=== PATIENT | female | born 1960 | race Caucasian/White ===

== ENCOUNTER 2019-08-10 13:38 | Emergency (ER) | payer OTHER, SELFPAY ==
--- NOTE | ~2019-08-10 | XR_ITS ---
EXAMINATION: XR elbow LT min 3V DATE: 08/10/2019 14:23 INDICATION: Left elbow pain, initial encounter TECHNIQUE: Anteroposterior, two oblique and lateral views of the left elbow were obtained. COMPARISON: None. FINDINGS: There is a nondisplaced transverse fracture of the neck of the radius. There is questionabl e extension to the articular surface of the radial head. A joint effusion is present. There is art specialist ior soft tissue swelling of the ankle. No additional acute osseous findings are identified. IMPRESSION: 1. Transverse neck fracture of the proximal radius with questionable extension to the articular surfa ce. 2. Joint effusion. Reviewed, dictated and finalized at location A. WELDER IMPRESSION: 1. Transverse neck fracture of the proximal radius with questionable extension to the articular surface. 2. Joint effusion.
[2019-08-10 14:05] VITALS: BP 111/76; PULSE 84; RESP 18; TEMP 37.1; O2SAT 97
--- NOTE | 2019-08-10 15:00 | ED.UPPEXIN ---
HPI - Extremity Injury (Upper) General Chief Complaint: Extremity Injury, Upper Stated Complaint: L/arm pain Time Seen by Provider: 08/10/19 14:45 Source: patient and family Mode of arrival: ambulatory Limitations: no limitations History of Present Illness HPI narrative: Courtney Blake is a 58 yofemale with a PMH of arthritis, autoimmune + markers, who comes to express care after a fall on a slick floor, and hitting left elbow. Unable to move left arm more than a little over 90 degrees, sensation, and skin warm Related Data Home Medications Medication Instructions Recorded Confirmed meloxicam 15 mg PO DAILY 08/10/19 08/10/19 tramadol 50 mg PO DAILY 08/10/19 08/10/19 Allergies Allergy/AdvReac Type Severity Reaction Status Date / Time No Known Allergies Allergy Verified 06/09/15 10:56 Review of Systems Review of Systems: Narrative: CONSTITUTIONAL: Denies fever, chills, sweats. EYES: Denies visual changes, redness, discharge. ENT: Denies rhinorrhea, congestion, sore throat, otalgia. CARDIOVASCULAR: Denies chest pain, palpitations, edema. RESPIRATORY: Denies dyspnea, wheezing, cough GASTROINTESTINAL: Denies abdominal pain, nausea, vomiting, diarrhea. GENITOURINARY: Denies dysuria, hematuria, abnormal discharge SKIN: Denies rash or itching. NEUROLOGIC: Denies numbness, or focal weakness. PSYCHIATRIC: Denies anxiety or depression. Left elbow pain and swelling PMFSH Family History Family History Other Diabetes mellitus Family history of arthritis Family history of gout Family history of malignant neoplasm Hypertension Social History Social History Smoking status: Never smoker Alcohol intake: current Comments At time of signature, I agree with nursing past medical, surgical, social and family history. There is no relevant family history pertinent to the presenting complaint. Exam Narrative: Exam Narrative: GENERAL: This is a well-nourished, well-developed patient, in moderate distress. Refuses pain medication HEAD: normocephalic, atraumatic. EYES: PERRL. Sclera clear/white. Vision is grossly intact. EARS: External ears normal, . Hearing grossly intact. NOSE: External nose normal with no obvious nasal discharge, nares without redness, no rhinorrhea. THROAT: Mucous membranes moist, NECK: Neck supple, CARDIOVASCULAR: Regular rate and rhythm without murmurs, gallops, or rubs. RESPIRATORY: Clear to auscultation. Breath sounds equal bilaterally. No wheezes, rales, or rhonchi. GASTROINTESTINAL: Abdomen soft, SKIN: warm, intact with no suspicious lesions or rash, good texture and turgor. NEURO: awake, alert, and oriented to person, place and time. There were no obvious focal neurologic abnormalities. Steady gait EXTREMITIES: Normal range of motion. No edema elbow effusion of the posterior joint; unable to move arm more than to about 95 degrees; refill, skin warm, no ecchymosis BACK: Nontender without deformity or crepitance. . Course Course Emergency Course: X-ray of elbow-positive for fracture of proximal radial head with potential extension into articular surface of left elbow Patient placed in OCL. Given information on rice. His pain medication at home Referral to orthopedics Vital Signs Vital signs: Vital Signs Temperature 98.8 F 08/10/19 14:05 Pulse Rate 84 08/10/19 14:05 Respiratory Rate 18 08/10/19 14:05 Blood Pressure 111/76 08/10/19 14:05 Pulse Oximetry 97 08/10/19 14:05 Temperature 98.8 F 08/10/19 14:05 Pulse Rate 84 08/10/19 14:05 Respiratory Rate 18 08/10/19 14:05 Blood Pressure 111/76 08/10/19 14:05 Pulse Oximetry 97 08/10/19 14:05 Procedures Orthopedic Splinting/Casting Injury #1: Splinting/Casting Date: 08/10/19 Splinting/Casting Time: 15:07 Side: left Upper Extremity Injury Location: elbow U
--- NOTE | 2019-08-10 15:32 | PC.NURSE ---
1515- pt changed into paper scrub shirt with assist of her , and then dorsal lateral ocl splint applied to pts left arm, with extra padding over injury site. pt tolerated all well and cms remains intact. pt encouraged to be careful and mindful since elbow is exposed in type of splint chosen. pt verbalized understanding.
== END 2019-08-10 15:23 | disposition home or self-care (01) ==
PROVIDERS: Emergency Provider Nurse Practitioner
DX: S52.132A Displaced fracture of neck of left radius, initial encounter for closed fracture (principal); W01.0XXA Fall on same level from slipping, tripping and stumbling without subsequent striking against object, initial encounter; M19.90 Unspecified osteoarthritis, unspecified site
CPT/HCPCS: 29105; 73080; 99214; G0463

== ENCOUNTER → 2021-12-05 12:00 | Outpatient (CLI) | payer BC, OTHER, SELFPAY ==
--- NOTE | ~2021-12-05 | DEXA_ITS ---
Bone Density Report Name: AMBROSIO KHAN Age: 61 Sex: Female Ethnicity: White Date of : 1960 Indication: postmenopausal; screening for osteoporosis; height loss; prior fracture; Referring Provider: Clair, Jelly Study: Bone densitometry was performed. Exam Date: December 05, 2021 Accession number: [id number] Bone Density: Region BMD T-score Z-score Classification AP Spine (L1-L4) 0.958 -0.8 0.8 Normal Femoral Neck (Left) 0.714 -1.2 0.2 Osteopenia Total Hip (Left) 0.785 -1.3 -0.2 Osteopenia Femoral Neck (Right) 0.666 -1.7 -0.2 Osteopenia Total Hip (Right) 0.772 -1.4 -0.3 Osteopenia Total Hip Mean 0.779 -1.4 -0.3 Osteopenia World Health Organization criteria for BMD impression classify patients as: Normal (T-score at or above -1.0), Osteopenia (T-score between -1.0 and -2.5), or Osteoporosis (T-score at or below -2.5). 10-year Fracture Risk(1): Major Osteoporotic Fracture 15% Hip Fracture 1.6% Reported Risk Factors: [place] (), Neck BMD=0.666, BMI=26.6, previous fracture (1) FRAX(R) Version 3.08. Fracture probability calculated for an untreated patient. Fracture probability may be lower if the patient has received treatment. Clinical Information Provided by Patient: Has had a low trauma fracture Has used the following medications: Calcium Patient maximum height was 69 Menopause Age: 45 No regular weight bearing exercise Drinks caffeinated beverages Onset of menses at age 11 Number of children 1 Impression: The patient has low bone mass, based on the Right Femoral Neck T-score. The patient has an estimated ten-year risk of hip fracture of 1.6% and an estimated ten-year risk of major fracture of 15%, based on the WHO FRAX algorithm. The patient has risk factors, including: previous fracture. Discussion: BONE DENSITY IS LOW AT ONE OR MORE SKELETAL SITES. This patient's lowest T-score is low at one or more skeletal sites. It meets the World Health Organization's (WHO) criteria for ?low bone mass? (T-score between -1.0 and -2.5). The patient's 10-year risk of fracture as calculated by FRAX is less than the threshold where pharmacological therapy is recommended by the National Osteoporosis Foundation (NOF). However, all treatment decisions require clinical judgment and consideration of individual patient factors, including patient preferences, comorbidities, previous drug use, risk factors not captured in the FRAX model (e.g., frailty, falls, vitamin D deficiency, increased bone turnover, interval significant decline in bone density) and possible under or overestimation of fracture risk by FRAX. The patient should follow a healthful lifestyle (good nutrition with adequate calcium and vitamin D, and appropriate weight-bearing exercise). Follow-Up: Consider repeating this study in 2
--- NOTE | ~2021-12-05 | MM_ITS ---
EXAMINATION: MM screening ezequiel BI w davie HISTORY: Screening mammogram TECHNIQUE: Craniocaudal and mediolateral oblique 3-D tomosynthesis images were obtained and synthetic 2-D images were generated. CAD analysis was submitted and interpreted. COMPARISON: 10/12/2015 bilateral screening mammogram BREAST PARENCHYMAL COMPOSITION: There are scattered areas of fibroglandular density. FINDINGS: There is no evidence of suspicious mass, calcification, or architectural distortion to sugg est malignancy in either breast. There has been no suspicious interval change. IMPRESSION: 1. No mammographic evidence of malignancy. 2. Recommend routine screening mammography in one year. BI-RADS Category 1: Negative Reviewed, dictated and finalized at location A.
== END ==
PROVIDERS: PCP Nurse Practitioner Family; Visit Provider Nurse Practitioner
DX: Z12.31 Encounter for screening mammogram for malignant neoplasm of breast (principal); Z13.820 Encounter for screening for osteoporosis; Z78.0 Asymptomatic menopausal state; M85.852 Other specified disorders of bone density and structure, left thigh; M85.851 Other specified disorders of bone density and structure, right thigh
CPT/HCPCS: 77063; 77067; 77080

== ENCOUNTER 2022-09-04 14:47 | Outpatient (CLI) | payer BC, OTHER, SELFPAY ==
--- NOTE | ~2022-09-04 | XR_ITS ---
XR hip LT 2V w AP pelvis DATE: 09/04/2022 15:13 INDICATION: Left hip pain for 2 weeks. No known injury. TECHNIQUE: AP view of pelvis. AP and lateral views of left hip. COMPARISON: None FINDINGS: There is a transitional lumbosacral vertebra with sacralization and pseudoarthrosis on the right, lumbarization on the left. The pubic symphysis and sacral iliac joints are normally aligned. No pelvic fracture or bone destruction is detected. Moderate left hip osteoarthritis no fracture or dislocation, avascular necrosis or bone destruction o f the left hip is detected. IMPRESSION: Transitional first sacral vertebra Moderate left hip osteoarthritis Reviewed, dictated and finalized at location B.
--- NOTE | ~2022-09-04 | XR_ITS ---
XR lumbar spine min 4V DATE: 09/04/2022 15:13 INDICATION: Low back pain for 2 weeks, left side TECHNIQUE: AP, lateral, coned lateral lumbosacral and bilateral oblique views COMPARISON: None FINDINGS: There is diffuse osteopenia. Mild dextro scoliosis of the lumbar spine. Probable transitional lumbosacral S1 vertebra. Included lower thoracic and lumbar pedicles are intact. No fracture or bone destruction is detected. The pars interarticularis areas are intact, without fracture but there is degenerative change, partic ularly in the lower lumbar and lumbosacral area. There is associated minimal grade 1 anterolisthesis at L3-4 and L4-5. Moderate degenerative disc disease at L4-5, L5-S1. The sacroiliac joints are intact, with mild degenerative change. IMPRESSION: Probable S1 transitional vertebra Minimal dextroscoliosis lumbar spine Osteopenia Moderate degenerative disc disease at L4-5 and L5-S1 Degenerative changes apophyseal joints with associated minimal grade 1 anterolisthesis at L3-4 and L4 -5 Reviewed, dictated and finalized at location B. IMPRESSION: Probable S1 transitional vertebra Minimal dextroscoliosis lumbar spine Osteopenia Moderate degenerative disc disease at L4-5 and L5-S1 Degenerative changes apophyseal joints with associated minimal grade 1 anteroli sthesis at L3-4 and L4-5
== END 2022-09-04 14:48 | disposition home or self-care (01) ==
PROVIDERS: PCP Nurse Practitioner Family; Visit Provider Nurse Practitioner Family
DX: M16.12 Unilateral primary osteoarthritis, left hip (principal); M85.88 Other specified disorders of bone density and structure, other site; M51.36 Other intervertebral disc degeneration, lumbar region; M51.37 Other intervertebral disc degeneration, lumbosacral region
CPT/HCPCS: 72110; 73502

== ENCOUNTER 2022-10-06 00:52 | Day surgery (SDC) | payer BC, OTHER, SELFPAY ==
[2022-09-29 15:57] VITALS: BMI 24.9
--- NOTE | 2022-10-05 17:23 | PM.HPGS ---
History of Present Illness History of Present Illness Consent: Risks, benefits, and alternatives have been discussed and questions answered. Patient agrees to proceed with procedure. Chief complaint: neoplasm screening Narrative: Courtney Blake is a 62 year old female Referred for colon cancer screening. Her last colonoscopy was about 12 years ago and was unremarkable. Review of Systems Review of Systems: All systems reviewed & are unremarkable except as noted in HPI and below PMFSH Past Medical History Medical History Acute bronchitis Anemia Hemoglobin 13.1, iron 77 with 20% saturation and ferritin 33 with vitamin B12 377 and folic acid 23.8 on 09/22/2021. BMI 26.0-26.9,adult Breast cancer screening Colon cancer screening Elevated rheumatoid factor Elevated rheumatoid factor at 50 with CRP normal at 4.9 on 09/22/2021. Encounter to establish care Left hip pain Low back pain Osteopenia Prediabetes Glucose 84 with hemoglobin A1c 5.6 on 09/22/2021. Seasonal allergies Trochanteric bursitis, left hip Vitamin B12 deficiency anemia (09/22/21) level low at 377 with goal greater than 400 on 09/22/2021. Vitamin D deficiency Level normal at 37 on 09/22/2021. Surgical History Surgical History History of knee surgery Right knee- 2016 Right knee replacement- 2019 Family History Family History Father Pancreatic cancer Hypertension Mother Diabetes mellitus Hypertension Grandparent Cancer Other Family history of arthritis Family history of gout Family history of malignant neoplasm Social History Social History Smoking status: Never smoker Alcohol intake: current Alcohol use details: Occasionally Substance use: never Substance use type: does not use Living arrangements: with family Spiritual care concerns: No Meds Home Medications and Allergies Home Medications Medication Instructions Recorded Confirmed Type calcium carbonate 600 mg-vitamin 1 cap PO EVERY OTHER DAY 08/03/21 10/06/22 History D3 12.5 mcg (500 unit) capsule (Calcium 600 with Vitamin D3) ferrous sulfate 325 mg (65 mg 325 mg PO EVERY OTHER DAY 08/03/21 10/06/22 History iron) tablet (FeroSul) multivitamin 1 tablet PO DAILY 08/03/21 10/06/22 History vitamin B complex 1 tablet PO DAILY 08/03/21 10/06/22 History cyanocobalamin (vitamin B-12) 1,000 mcg PO DAILY 09/24/21 10/06/22 History 1,000 mcg tablet tramadol 50 mg tablet 50 mg PO BID PRN pain #60 tabs 05/29/22 10/06/22 Rx ascorbic acid (vitamin C) 500 mg 500 mg PO DAILY 09/29/22 10/06/22 History tablet Allergies Allergy/AdvReac Type Severity Reaction Status Date / Time morphine Allergy Severe Hallucinati Verified 10/06/22 09:31 ng Exam Const: General: alert Orientation/consciousness: patient oriented x3 Resp: Auscultation: clear to auscultation bilaterally Cardio: Rhythm: regular rhythm GI: GI Palp: Yes Soft to palpation and No Tenderness to palpation present (GI) Neuro: General: patient oriented x3 Assessment and Plan Assessment and plan (1) Colon cancer screening: Code(s): Z12.11 - Encounter for screening for malignant neoplasm of colon Status: Acute Assessment and Plan: Colonoscopy with possible biopsy or polypectomy or cautery or injection of substances.
[2022-10-06 09:32] VITALS: BP 113/74; PULSE 80; RESP 18; TEMP 36.4; O2SAT 100; BMI 24.5
[2022-10-06] MEDS: LACTATED RINGERS 1,000 ML 150 ML IV CONT (09:40)
--- NOTE | 2022-10-06 10:14 | WPDANESEPPF ---
Anes - Initial Pre Proc Eval Procedure: Operation Date: 10/06/22 10:30 Proposed Procedures p Screening Colonoscopy - Slade Pennington MD Date/Time: 10/06/22 10:14 Surgeon: Slade Pennington MD Pre Op Diagnosis: neoplasm screening Patient Data Age: 62 Gender: F Height: 1.75 m Weight: 75.4 kg Last Vital Signs Temp 97.6 F 10/06/22 09:32 Pulse 80 10/06/22 09:32 Resp 18 10/06/22 09:32 BP 113/74 10/06/22 09:32 Pulse Ox 100 10/06/22 09:32 O2 Del Method Room Air 10/06/22 09:32 Allergies Allergy/AdvReac Type Severity Reaction Status Date / Time morphine Allergy Severe Hallucinati Verified 10/06/22 09:31 ng Home Medications Medication Instructions Recorded Confirmed Type calcium carbonate 600 mg-vitamin 1 cap PO EVERY OTHER DAY 08/03/21 10/06/22 History D3 12.5 mcg (500 unit) capsule (Calcium 600 with Vitamin D3) ferrous sulfate 325 mg (65 mg 325 mg PO EVERY OTHER DAY 08/03/21 10/06/22 History iron) tablet (FeroSul) multivitamin 1 tablet PO DAILY 08/03/21 10/06/22 History vitamin B complex 1 tablet PO DAILY 08/03/21 10/06/22 History cyanocobalamin (vitamin B-12) 1,000 mcg PO DAILY 09/24/21 10/06/22 History 1,000 mcg tablet tramadol 50 mg tablet 50 mg PO BID PRN pain #60 tabs 05/29/22 10/06/22 Rx ascorbic acid (vitamin C) 500 mg 500 mg PO DAILY 09/29/22 10/06/22 History tablet Patient hx anesthesia problems: none Family hx anesthesia problems: none Results Review: All pre-operative results and documents have been reviewed as part of the pre-operative evaluation. [facility] Past Medical History Medical History Acute bronchitis Anemia Hemoglobin 13.1, iron 77 with 20% saturation and ferritin 33 with vitamin B12 377 and folic acid 23.8 on 09/22/2021. BMI 26.0-26.9,adult Breast cancer screening Colon cancer screening Elevated rheumatoid factor Elevated rheumatoid factor at 50 with CRP normal at 4.9 on 09/22/2021. Encounter to establish care Left hip pain Low back pain Osteopenia Prediabetes Glucose 84 with hemoglobin A1c 5.6 on 09/22/2021. Seasonal allergies Trochanteric bursitis, left hip Vitamin B12 deficiency anemia (09/22/21) level low at 377 with goal greater than 400 on 09/22/2021. Vitamin D deficiency Level normal at 37 on 09/22/2021. Surgical History Surgical History History of knee surgery Right knee- 2016 Right knee replacement- 2019 Family History Family History Father Pancreatic cancer Hypertension Mother Diabetes mellitus Hypertension Grandparent Cancer Other Family history of arthritis Family history of gout Family history of malignant neoplasm Social History Social History Smoking status: Never smoker Alcohol intake: current Alcohol use details: Occasionally Substance use: never Substance use type: does not use Living arrangements: with family Spiritual care concerns: No Anes - Eval Final PreProcedure Day of Procedure 10/06/22 10:14 Patient weight: normal Heart: regular rate and rhythm Lungs: clear to auscultation Airway: Mallampati scale class II Neurological: alert and oriented Last oral intake: >/= 8 hours ASA classification: II Emergent: no Anesthetic plan: proceed Anesthesia type and monitoring: general GIVS and standard monitoring Results Review: All pre-operative results and documents have been reviewed as part of the pre-operative evaluation. Informed Consent: The patient's anesthetic plan and its attendant risks and benefits were discussed with the patient/family/POA. Questions were solicited and answers provided to the satisfaction of the patient/family/POA.
[2022-10-06 10:37] VITALS: BP 110/72; PULSE 69; RESP 15; O2SAT 99
[2022-10-06 10:47] VITALS: BP 115/74; PULSE 65; RESP 18; O2SAT 100
[2022-10-06 10:57] VITALS: BP 114/82; PULSE 69; RESP 22; O2SAT 100
== END 2022-10-06 11:06 | disposition home or self-care (01) ==
PROVIDERS: PCP Nurse Practitioner Family; Visit Provider Internal Medicine Gastroenterology
PROC: 0DJD8ZZ Inspection of Lower Intestinal Tract, Via Natural or Artificial Opening Endoscopic (ICD-10-PCS; CPT 45378; principal; 2022-10-06 10:30)
DX: Z12.11 Encounter for screening for malignant neoplasm of colon (principal); E55.9 Vitamin D deficiency, unspecified; D51.9 Vitamin B12 deficiency anemia, unspecified
CPT/HCPCS: 45378; J2704; J7120

== ENCOUNTER 2022-10-25 14:05 | Outpatient (CLI) | payer BC, OTHER, SELFPAY ==
[2022-10-25 14:45] LABS: Appearance Urine Clear (Clear); Bacteria Urine None Seen /hpf; Bilirubin Urine Negative (Negative); Blood Urine Negative (Negative); Color Urine Yellow (Yellow); Glucose Urine UA Negative (Negative); Ketones Urine Negative (Negative); Leukocyte Esterase Ur 2+ LEU/UL (Negative); Nitrate Urine Negative (Negative); Non Pathogenic Casts 0-2; Protein Urine Negative (Negative); RBC Urine 0-2 /hpf (0-2); Specific Grav Ur 1.016 (1.001-1.035); Squamous Epithelial Cell Urine None seen /hpf (Few); Urobilinogen Urine 0.2 mg/dL (<2.0); WBC Urine 21-50 /hpf
[2022-10-25 14:52] LABS: Add Urine Microscopic? YES
== END 2022-10-25 14:06 | disposition home or self-care (01) ==
PROVIDERS: PCP Nurse Practitioner Family; Visit Provider Nurse Practitioner Family
DX: R30.0 Dysuria (principal)
CPT/HCPCS: 81001; 87077; 87086; 87147; 87181; 87186

== ENCOUNTER 2023-02-10 08:03 | Emergency (ER) | payer BC, OTHER, SELFPAY ==
[2023-02-10 08:14] VITALS: BP 110/69; PULSE 66; RESP 16; TEMP 36.2; O2SAT 98
--- NOTE | 2023-02-10 08:24 | ED.DENTAL ---
HPI - Dental/Oral General Chief complaint: Dental/Oral Stated complaint: Rt Facial Swelling Time Seen by Provider: 02/10/23 08:19 Source: patient and RN notes reviewed Mode of arrival: ambulatory Limitations: no limitations History of Present Illness HPI Narrative: Presents today complaining of right lower jaw pain and swelling x3 days. She had a dental implant post placed 3 weeks ago and had been doing well, but noticed some redness and swelling around the implant 3 days ago. She has been taking some tramadol intermittently for pain and states the pain had been improving prior to onset of these acute symptoms. She took some oxycodone last night for the worsening pain, which child for short period of time. She currently rates her pain 09/25. She has not yet contacted her dentist, but will call them today. Denies fever, difficulty swallowing or breathing. Related Data Home Medications Medication Instructions Recorded Confirmed calcium carbonate 600 mg-vitamin 1 cap PO EVERY OTHER DAY 08/03/21 02/10/23 D3 12.5 mcg (500 unit) capsule (Calcium 600 with Vitamin D3) ferrous sulfate 325 mg (65 mg 325 mg PO EVERY OTHER DAY 08/03/21 02/10/23 iron) tablet (FeroSul) multivitamin 1 tablet PO DAILY 08/03/21 02/10/23 cyanocobalamin (vitamin B-12) 1,000 mcg PO DAILY 09/24/21 02/10/23 1,000 mcg tablet ascorbic acid (vitamin C) 500 mg 500 mg PO DAILY 09/29/22 02/10/23 tablet oxycodone-acetaminophen 5 mg-325 1 tablet PO PRN PRN Pain 02/10/23 02/10/23 mg tablet Allergies Allergy/AdvReac Type Severity Reaction Status Date / Time morphine Allergy Severe Hallucinati Verified 02/10/23 08:22 ng Review of Systems Review of Systems: CONSTITUTIONAL: Denies body aches, fever, chills, or sweats. EYES: Denies visual changes, redness, or discharge. ENT: Denies rhinorrhea, congestion, sore throat, or otalgia.+ right lower jaw swelling and dental implant pain CARDIOVASCULAR: Denies chest pain, palpitations, or edema. RESPIRATORY: Denies cough or dyspnea. GASTROINTESTINAL: Denies abdominal pain, nausea, vomiting, or diarrhea. GENITOURINARY: Denies dysuria or hematuria. SKIN: Denies rash, itching, or wounds. MUSCULOSKELETAL: Denies back pain, joint pain, or myalgia. NEUROLOGIC: Denies headache, numbness, tingling, or weakness. PSYCH: Denies depression or anxiety. [facility] Past Medical History Medical History Acute bronchitis Anemia Hemoglobin 13.1, iron 77 with 20% saturation and ferritin 33 with vitamin B12 377 and folic acid 23.8 on 09/22/2021. BMI 25.0-25.9,adult BMI 26.0-26.9,adult Breast cancer screening Colon cancer screening Dysuria Elevated rheumatoid factor Elevated rheumatoid factor at 50 with CRP normal at 4.9 on 09/22/2021. Encounter to establish care Left hip pain Low back pain Osteopenia Prediabetes Glucose 84 with hemoglobin A1c 5.6 on 09/22/2021. Seasonal allergies Trochanteric bursitis, left hip Vitamin B12 deficiency anemia (09/22/21) level low at 377 with goal greater than 400 on 09/22/2021. Vitamin D deficiency Level normal at 37 on 09/22/2021. Surgical History Surgical History History of knee surgery Right knee- 2016 Right knee replacement- 2019 Family History Family History Father Pancreatic cancer Hypertension Mother Diabetes mellitus Hypertension Grandparent Cancer Other Family history of arthritis Family history of gout Family history of malignant neoplasm Social History Social History Smoking status: Never smoker Alcohol intake: current Alcohol use details: Occasionally Substance use: never Substance use type: does not use Living arrangements: with family Spiritual care concerns: No Comments At ti
== END 2023-02-10 08:38 | disposition home or self-care (01) ==
PROVIDERS: Emergency Provider Nurse Practitioner; PCP Nurse Practitioner Family
DX: K04.7 Periapical abscess without sinus (principal); M85.80 Other specified disorders of bone density and structure, unspecified site; R73.03 Prediabetes; E55.9 Vitamin D deficiency, unspecified; E53.8 Deficiency of other specified B group vitamins; Z96.651 Presence of right artificial knee joint
CPT/HCPCS: 99213; G0463

== ENCOUNTER 2023-05-30 07:52 | Outpatient (CLI) | payer BC, OTHER, SELFPAY | END 2023-05-30 07:53 | disposition home or self-care (01) | LOC: ANHAUDASC 07:54 | PROVIDERS: PCP Nurse Practitioner Family; Visit Provider Nurse Practitioner Family | DX: H90.3 Sensorineural hearing loss, bilateral (principal) | CPT/HCPCS: 92557; 92567 ==

== ENCOUNTER → 2023-10-05 08:58 | Outpatient (CLI) | payer MEDICARE, BC, OTHER, SELFPAY ==
--- NOTE | ~2023-10-05 | XR_ITS ---
EXAMINATION: XR elbow LT min 3V, XR forearm LT 2V DATE: 10/05/2023 09:17 INDICATION: Left elbow pain and inability to straighten the elbow post fall one day prior TECHNIQUE: 1. Anteroposterior, two oblique and lateral views of the left elbow were obtained. 2. Anteroposterior and lateral views of the left forearm were obtained. COMPARISON: None. FINDINGS: Alignment is normal. No fracture identified. There is however a left elbow joint effusion with displa cement of the anterior and posterior fat pads. There is mild osteoarthritis with minimal nonuniform j oint space narrowing and tiny marginal osteophytes. Severe osteoarthritis at the first carpometacarpa l joint and mild osteoarthritis at the triscaphe and pisotriquetral articulations of the carpus. Like ly degenerative subarticular cystic change at the distal pole of the scaphoid and at the triquetrum m ild soft tissue swelling posterior to the tip of the olecranon. IMPRESSION: 1. No evident fracture however there is a left elbow joint effusion. 2. 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 Reviewed, dictated and finalized at location A. IMPRESSION: 1. No evident fracture however there is a left elbow joint effusion. 2. 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
== END ==
PROVIDERS: PCP Nurse Practitioner Family; Visit Provider Nurse Practitioner Family
DX: M25.422 Effusion, left elbow (principal); M19.042 Primary osteoarthritis, left hand; W19.XXXA Unspecified fall, initial encounter
CPT/HCPCS: 73080; 73090

== ENCOUNTER 2023-12-10 13:03 | Outpatient (CLI) | payer MEDICARE, BC, OTHER, SELFPAY ==
--- NOTE | ~2023-12-10 | DEXA_ITS ---
? Bone Density Report? Name:? AMBROSIO KHAN Patient ID:??? [id number] Age:? 63 Sex:? Female Ethnicity:? White Date of : 1960 Indication: postmenopausal; screening for osteoporosis; prior fracture; Referring Provider: Clair*Jelly Wallis Study: Bone densitometry was performed. Exam Date: December 10, 2023 Accession number: [id number] Bone Density: Region? BMD??? T-score? Z-score?? Classification AP Spine(L1-L4)? 0.994?? -0.5?1.3? Normal Femoral Neck (Left)? 0.724?? -1.1? 0.4? Osteopenia Total Hip (Left)? 0.768?? -1.4? -0.2? Osteopenia Femoral Neck (Right)? 0.694?? -1.4? 0.1? Osteopenia Total Hip (Right)? 0.795?? -1.2? 0.0? Osteopenia Femoral Neck Mean? 0.709?? -1.3? 0.3? Osteopenia Total Hip Mean? 0.782?? -1.3? -0.1? Osteopenia World Health Organization criteria for BMD impression classify patients as: Normal (T-score at or above -1.0), Osteopenia (T-score between -1.0 and -2.5), or Osteoporosis (T-score at or below -2.5). 10-year Fracture Risk: FRAX not reported because: ? Treated for osteoporosis Clinical Information Provided by Patient: Has had a low trauma fracture Is being treated for osteoporosis Has used the following medications: Vitamin D, Calcium, multi Patient maximum height was 69 Menopause Age: 46 No regular weight bearing exercise Drinks caffeinated beverages Onset of menses at age 10 Number of children 3 Impression: The patient has low bone mass, based on the Left Total Hip T-score. The patient has risk factors, including: previous fracture. Discussion: It is important to ask patients whether they are taking their medications and to encourage continued and appropriate compliance with their osteoporosis therapies to reduce fracture risk. It is also important to review their risk factors and encourage appropriate calcium and vitamin D intakes, exercise, fall prevention and other lifestyle measures. Follow-Up:Consider a repeat BMD and Vertebral Fracture Assessment (VFA) exam in 2 years or sooner if medically necessary, to reassess this patient's status. Reported by: Dr. Sanchez Sinclair on 12/11/2023 8:26:00 AM. [facility]
--- NOTE | ~2023-12-10 | MM_ITS ---
EXAMINATION: MM screening ezequiel BI w davie HISTORY: Screening mammogram TECHNIQUE: Craniocaudal and mediolateral oblique 3-D tomosynthesis images were obtained and synthetic 2-D images were generated. CAD analysis was submitted and interpreted. COMPARISON: 12/05/2021 BREAST PARENCHYMAL COMPOSITION:Not Dense. There are scattered areas of fibroglandular density. FINDINGS: No suspicious mass, calcification, or architectural distortion are identified in either tanner ast to suggest malignancy. There has been no suspicious interval change. IMPRESSION: No mammographic evidence of malignancy. Recommend routine screening mammography in one year. BI-RADS Category 1: Negative Reviewed, dictated and finalized at location .
== END 2023-12-10 13:04 | disposition home or self-care (01) ==
LOC: CHSIMG 13:07
PROVIDERS: PCP Nurse Practitioner Family; Visit Provider Nurse Practitioner
DX: Z12.31 Encounter for screening mammogram for malignant neoplasm of breast (principal); Z78.0 Asymptomatic menopausal state; M85.89 Other specified disorders of bone density and structure, multiple sites
CPT/HCPCS: 77063; 77067; 77080

== ENCOUNTER 2024-11-02 09:41 | Emergency (ER) | payer MEDICARE, BC, OTHER, SELFPAY ==
--- NOTE | 2024-11-02 10:00 | ED_ITS ---
HPI - Eye Problem General Chief complaint: Eye Problems Stated complaint: EYE REDNESS Time Seen by Provider: 11/02/24 10:00 Source: patient Mode of arrival: ambulatory Limitations: no limitations History of Present Illness HPI Narrative: 64 yo female presented for c/o right eye redness and itching for 2 days. started with yellow drainage and crust to the lids yesterday. Endorses slight haze over visual renner and gritty sensation. denies injury, FB, or significant pain, no swelling reported. MD chief complaint: eye pain Related Data Home Medications Medication Instructions Recorded Confirmed Last Taken Type calcium 600 mg (as 1 cap PO EVERY OTHER DAY 08/03/21 11/02/24 Unknown History carbonate)-vitamin D3 12.5 mcg (500 unit) capsule (Calcium with Vit D3) ferrous sulfate 325 mg (65 mg 325 mg PO EVERY OTHER DAY 08/03/21 11/02/24 Unknown History iron) tablet (FeroSul) multivitamin 1 tablet PO DAILY 08/03/21 11/02/24 Unknown History cyanocobalamin (vitamin B-12) 1,000 mcg PO DAILY 09/24/21 11/02/24 Unknown History 1,000 mcg tablet ascorbic acid (vitamin C) 500 mg 500 mg PO DAILY 09/29/22 11/02/24 Unknown History tablet biotin 10,000 mcg disintegrating 10,000 mcg PO DAILY 10/28/24 11/02/24 Unknown History tablet Allergies Allergy/AdvReac Type Severity Reaction Status Date / Time morphine Allergy Severe Hallucinati Verified 11/02/24 09:53 ng Review of Systems Review of Systems: CONSTITUTIONAL: Denies body aches, fever, chills EYES:Endorses redness and itching to right eye; FB sensation, Denies visual changes, pain, photophobia ENT: Denies rhinorrhea, congestion, sore throat, or otalgia. CARDIOVASCULAR: Denies chest pain, palpitations RESPIRATORY: Denies cough or dyspnea. GASTROINTESTINAL: Denies abdominal pain, nausea, vomiting, or diarrhea. SKIN: Denies rash, itching, or wounds. MUSCULOSKELETAL: Denies back pain, joint pain, or myalgia. NEUROLOGIC: Denies headache, numbness, tingling, or weakness. All systems reviewed & are unremarkable except as noted in HPI and below PMFSH Past Medical History Medical History (Updated 11/02/24 @ 10:04 by Bridget Bryant APRN) Elevated TSH Left knee pain Odontoid fracture with type II morphology Notalgia paresthetica UTI (urinary tract infection) Left forearm pain Left elbow pain Conjunctivitis Hearing loss Lichen planus Dysuria BMI 25.0-25.9,adult Left hip pain Low back pain Acute bronchitis Trochanteric bursitis, left hip Vitamin B12 deficiency anemia (09/22/21) level low at 377 with goal greater than 400 on 09/22/2021. Vitamin D deficiency Level normal at 37 on 09/22/2021. Colon cancer screening BMI 26.0-26.9,adult Seasonal allergies Encounter to establish care Breast cancer screening Osteopenia Elevated rheumatoid factor Elevated rheumatoid factor at 50 with CRP normal at 4.9 on 09/22/2021. Prediabetes Glucose 84 with hemoglobin A1c 5.6 on 09/22/2021. Anemia Hemoglobin 13.1, iron 77 with 20% saturation and ferritin 33 with vitamin B12 377 and folic acid 23.8 on 09/22/2021. Surgical History Surgical History History of knee surgery Right knee- 2016 Right knee replacement- 2019 Family History Family History Father Pancreatic cancer Hypertension Mother Diabetes mellitus Hypertension Grandparent Cancer Other Family history of arthritis Family history of gout Family history of malignant neoplasm Social History Social History Smoking status: Never smoker Alcohol intake: current Alcohol use details: Occasionally Substance use: never Substance use type: does not use Living arrangements: with family Spiritual care concerns: No Comments At time of signature, I have reviewed and agree with nursing past medical, surgical, social and family history unless otherwise noted. Please see nursing chart for further information. There is no relevant family history pertinent to the presenting complaint Exam Narrative: GENERAL: Well-appearing HEAD: Normocephalic, atraumatic. EYES: right conjunctival injection with yellow drainage and crust. No eye lid swelling or redness. PERRLA, EOMI. Lid eversion shows no FB. ENT: Mucous membranes pink and moist. No rhinorrhea. TMs normal bilaterally. Throat normal. Uvula midline. CHEST: Clear to auscultation. HEART: Regular rate and rhythm. SKIN: Warm, dry, no rash. Normal skin turgor. NEURO: No focal deficits. Alert and oriented x3 PSYCH: Normal affect. Course Course Emergency Course: Patient is aware of diagnosis, understands and agrees to treatment plan. Anticipatory guidance given. Patient agrees to follow-up as directed and is aware of reasons to seek care at the emergency department. Portions of this record may have been created with voice recognition software Level of Care: Express Care Visit MDM - Eye Problem MDM Narrative Medical decision making narrative: Discussed physical exam findings c/w right conjunctivitis. Advised supportive measures and signs/symptoms to go to the ER. Pt is appropriate for outpt treatment and f/u. Differential Diagnosis Differential diagnosis: Likely corneal abrasion, conjunctivitis, acute iritis and other Discharge Plan Discharge Clinical Impression: Bacterial conjunctivitis Patient Disposition: Home Condition: Stable Instructions: Antibiotic Form, Conjunctivitis (ED) Additional Instructions: Avoid touching or rubbing your eye. Use over the counter lubricating eye drops as needed for irritation Use a warm or cool washcloth on your eye for comfort Use eyedrops as directed - you are contagious for 24 hours after starting the antibiotic Practice good handwashing and hygiene to prevent spread of infection Use new makeup, lashes etc. You may take Tylenol or ibuprofen for pain Follow-up with PCP or education courses sales representative if condition is not improving in 2-3days. Go to the emergency room if you have severe pain or pressure behind your eye, difficulty seeing, or other severe symptoms [facility] [phone] [facility] [phone] [facility] [phone] [facility] [phone] Patient Language: Solomon Islander Prescriptions: New polymyxin B sulf-trimethoprim 10,000 unit- 1 mg/mL drops 1 drp RIGHT EYE Q3H 7 Days Qty: 10 0RF Rx Instructions: while awake; do not exceed 6 doses in 24 hours No Action ferrous sulfate [FeroSul] 325 mg (65 mg iron) tablet 325 mg PO EVERY OTHER DAY multivitamin Tablet 1 tablet PO DAILY calcium carbonate-vitamin D3 [Calcium 600 with Vitamin D3] 600 mg-12.5 mcg (500 unit) capsule 1 cap PO EVERY OTHER DAY Patient Comments: 2 caps daily biotin 10,000 mcg tablet,disintegrating 10,000 mcg PO DAILY (DME) blood-glucose meter [Blood Glucose Monitoring] Kit See Rx Instructions .Route Qty: 1 0RF Rx Instructions: check blood sugar daily ascorbic acid (vitamin C) 500 mg Tablet 500 mg PO DAILY cyanocobalamin (vitamin B-12) 1,000 mcg tablet 1,000 mcg PO DAILY tramadol 50 mg tablet 50 mg PO BID PRN (Reason: pain) Qty: 60 5RF (DME) lancets [OneTouch UltraSoft 2 Lancet] 30 gauge misc See Rx Instructions .Route Qty: 100 3RF Rx Instructions: check blood sugar daily (DME) OneTouch Ultra Test Strip See Rx Instructions .Route Qty: 100 3RF Rx Instructions: check blood sugar daily Follow-up/Referrals: Yulissa Blake NP [Primary Care Provider] - Time of Disposition: 10:05
== END 2024-11-02 10:08 | disposition home or self-care (01) ==
PROVIDERS: Emergency Provider Nurse Practitioner Family; PCP Nurse Practitioner Family
DX: H10.9 Unspecified conjunctivitis (principal); M85.80 Other specified disorders of bone density and structure, unspecified site; R73.03 Prediabetes; D51.9 Vitamin B12 deficiency anemia, unspecified
CPT/HCPCS: 99213; G0463

== ENCOUNTER 2024-12-22 12:10 | Outpatient (CLI) | payer MEDICARE, BC, OTHER, SELFPAY ==
--- NOTE | ~2024-12-22 | MM_ITS ---
EXAMINATION: MM screening [facility] BI w davie HISTORY: Screening TECHNIQUE: Craniocaudal and mediolateral oblique 3-D tomosynthesis images were obtained and synthetic 2-D images were generated. CAD analysis was submitted and interpreted. COMPARISON: Comparison to multiple prior studies sequentially, with oldest reviewed study dated 10/11. BREAST PARENCHYMAL COMPOSITION: Not dense: There are scattered areas of fibroglandular density. FINDINGS: There is no evidence of suspicious mass, calcification, or architectural distortion to sugg est malignancy in either breast. There has been no suspicious interval change. IMPRESSION: 1. No mammographic evidence of malignancy. 2. Recommend routine screening mammography in one year. BI-RADS Category 1: Negative Reviewed, dictated and finalized at location A.
--- OUTSIDE RECORDS SUMMARY | 2024-12-22 12:15 | XMS_ITS ---
Author Organization [facility] [place] ([address]) Address [address] [place] [address] Care Team Providers Care Rn Resource Nurse Name Role Phone Dr. Andrea Holden Primary Care Provider Unava Bridgett Patel Unavailable [phone] REASON FOR VISIT ARC follow-up Encounters Encounter Location Date Provider Diagnosis [facility] [address] [place] [address] 12/05/2023 Bridgett Bush Plan Of Treatment No Information Progress Notes * Courtney KHANDOB:1960 ([age] yo F)Acc No.[id number]:12/05/2023 Progress Notes Patient: Courtney GAITAN Provider: Nicolas Bush MD :1960 A ge:63 Y S ex:Female Date:12/05/2023 Address:[facility] [id number] Pcp:Dr. Andrea Holden Subjective: * Chief Complaints: * 1 . ARC follow-up. * Medical History: Objective: * Vitals: Assessment: Plan: * Treatment: * Billing Information: * Visit Code: * Procedure Codes: * Electronic signature of Rimma Buhs MD on 12/22/2024 at 12:15 PM CDT Sign off status: Pending * Provider: Nicolas Bush MD Date: 12/05/2023 Generated for Printi ng/Vaishnavi/Pepeitting on: 0 12/22/2024 12:15 PM CDT
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
--- OUTSIDE RECORDS SUMMARY | 2024-12-22 12:15 | XMS_ITS | Clinical Summary ---
Author Organization [facility] Address [address] [place] [address] [place] [address] Care Team Providers Care Child Welfare Counselor Name Role Phone Unavailable Primary Care Provider Unavailabl e Social History Tobacco Use Types Packs/Day Years Used Date Smoking Tobacco: Never Assessed Comments Unknown Sex and Gender Information Value Date Recorded Sex Assigned at Not on file Legal Sex Female 11:58 AM CDT Gender Identity Not on file Sexual Orientation Not on file Plan of Treatment Health Maintenance Due Date Last Done Comments BREAST CANCER SCREENING 1998 COLORECTAL SCREENING 09/09/2003 Colorectal Cancer Screening 09/09/2003 FIT-DNA Q 3 years 09/09/2003 FIT/FOBT Q 1 year 09/09/2003 Flex Sig/CT Colonography Q 5 years 09/09/2003 PNEUMOCOCCAL VACCINE 50+ YEARS (1 of 1 - PCV) 09/09/19 09 ZOSTER VACCINE (1 of 2) 2008 OSTEOPOROSIS SCREENING 09/09/2023 INFLUENZA VACCINE (#1) 2025 DTAP/TDAP/TD VACCINES (2 - Td or Tdap) 03/17/2025 RSV VACCINE (60+ or ) (1 - 1-dose 75+ series) 2033
--- OUTSIDE RECORDS SUMMARY | 2024-12-22 12:16 | XMS_ITS ---
Author Organization [facility] [place] ([address]) Address [address] [place] [address] Care Team Providers Care Automatic Grinder Operator Name Role Phone Dr. Andrea Holden Primary Care Provider UnaBridgett Castillo Unavailable [phone] ZZ-Migration, Provider Unavailable Unavailab le Allergies Allergen (clinical drug ingredient) Drug/Non Drug Allergy documented on EMR Reaction Allergy Type Onset Date Status morphine Morphine other reaction Drug Allergy Ac tive REASON [facility]ISIT [facility] Encounter Medications Medication SIG (Take, Route, Frequency, Duration) Notes Start Date End Date Status Premarin 0.625 MG 1 tab(s) orally once a day Active Levocetirizine Dihydrochloride 5 MG 1 tab(s) orally once a day (in the evening); Duration: 30 day(s) 10/02/2023 Active Citracal Maximum 250 MG-12.5 MCG 2 TAB(S) CHEWED ONCE A DAY *Please review and pick correct strength-formulati on from [employer] ([employer])span options. If intended option is not shown, discontinue and re-order from Quick Search* Active traMADol HCl 25 MG 1 TAB(S) ORALLY EVERY 6 HOURS *Please review and pick correct strength-formulati on from [employer] ([employer]span options. If intended option is not shown, discontinue and re-order from Quick Search* Active Clobetasol Propionate 0.05 % 1 javi applied topically 2 times a day Active Pepcid 20 MG 1 tab(s) orally 2 times a day; Duration: 30 days 10/02/2023 Active Encounters Encounter Location Date Provider Diagnosis [facility] [address] [place] [address] 12/01/2023 Provider Carolina Other pruritus L29.8 Assessments Encounter Date Diagnosis (ICD Code) Assessment Notes Treatment Notes Treatment Clinical Notes Section Notes 12/01/2023 Other pruritus (ICD-10 - L29.8) Plan Of Treatment Medication Medication Name Sig Start Date Stop Date Notes Levocetirizine Dihydrochlori de 5 MG 1 tab(s) orally once a day (in the evening); Duration: 30 day(s) 10/02/2023 Pepcid 20 MG 1 tab(s) orally 2 ti mes a day; Duration: 30 days 10/02/2023 Progress Notes * Courtney KHANDOB:1960 ([age] yo F)Acc No.[id number]:12/01/2023 Patient: Courtney GAITAN Provider: Kiki Mitchell :1960 A ge:63 Y S ex:Female Date:12/01/2023 Address:[address] [place] [address] [place] [place], [id number] Pcp:Dr. Andrea Holden Subjective: * Chief Complaints: * 1 . [facility]. * Medical History: * Medications: T aking Premarin 0.625 MG Tablet 1 tab(s) orally once a day , Taking Clobetasol Propionate 0.05 % Cream 1 javi applied topically 2 times a day , Taking traMADol HCl 25 MG TABLET 1 TAB(S) ORALLY EVERY 6 HOURS , Notes to Pharmacist: *Please review and pick correct strength-formulation from [employer]span options. If intended option is not shown, discontinue and re-order from Quick Search*, Taking Citracal Maximum 250 MG-12.5 MCG TABLET, CHEWABLE 2 TAB(S) CHEWED ONCE A DAY , Notes to Pharmacist: *Please review and pick correct strength-formulation from [employer] ([employer]span options. If intended option is not shown, discontinue and re-order from Quick Search* * Allergies: M orphine: other reaction. Objective: * Vitals: Assessment: * Assessment: 1. O ther pruritus - L29.8 (Primary) Plan: * Treatment: * Billing Information: * Visit Code: * Procedure Codes: * Electronic signature of Prov antoniar ZZ-Migration on 12/22/2024 at 12:16 PM CDT Sign off status: Pending * Provider: Kiki coker Migration Date: 0 12/01/2023 Generated for Bob viera/Vaishnavi/Buck on: 0 12/22/2024 12:16 PM CDT
--- OUTSIDE RECORDS SUMMARY | 2024-12-22 12:16 | XMS_ITS | Encounter Summary ---
Author Organization [facility] Address [address] [place] [address] Phone Care Team Providers Care Tie In Machine Operator Name Role Phone Radha LOPEZ MD, Vinny Choe Primary Care Provid er Yulissa Blake NP Primary Care Provider [phone] Tanmay Lnadaverde MD Unavailable Encounter Details Date Type Department Care Team (Late st Contact Info) Description 09/04/2022 Orders Only [facility] Scanning, Provider Social History Tobacco Use Types Packs/Day Years Used Date Smoking Tobacco: Never Smokeless Tobacco: Never Alcohol Use Standard Drinks/Week Comments Yes 0 (1 standard drink = 0.6 oz pur e alcohol) none to half a bottle of wine Comments No Sex and Gender Information Value Date Recorded Sex Assigned at Not on file Legal Sex Female 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 Operating Room [address] [place] [address] Jose Vieyra MD [address] [place] [address] Scheduled Procedures Name Priority Associated Diagnoses Date/Ti me ARTHROPLASTY TOTAL KNEE - DEPUY Primary osteoarthritis of left knee documented as of this encounter Procedures Procedure Name Priority Date/Time Associated Diagnosis Comments SCAN - RADIOLOGY/IMAGING 09/04/2022 documented in this encounter Results * SCAN - RADIOLOGY/IMAGING (09/04/2022) Anatomical Region Laterality Modality Other us Provider Scanning Final Result documented in this encounter Visit Diagnoses Not on filedocumented in this encounter Care Teams Tie In Machine Operator Relationship Specialty Start Date End Date Vinny Garcia II, MD PCP - General Family Practice 02/16/20 09/20/23 Yulissa Blake NP [address] [address] PCP - General Family Medicine 09/21/23 Tanmay Landaverde MD [address] [facility] [address] [place] [address] Consulting Physician Neurosurgery 04/25/24 documented as of this encounter
--- OUTSIDE RECORDS SUMMARY | 2024-12-22 12:17 | XMS_ITS | Patient Health Record ---
Author Organization [facility] [place] ([address]) Address [address] [place] [address] Care Team Providers Care Director Global Sales Name Role Phone Dr. Andrea Holden Primary Care Provider Natan colón Deanne Bushlyn Unavailable [phone] Allergies Allergen (clinical drug ingredient) Drug/Non Drug Allergy documented on EMR Reaction Allergy Type Onset Date Status morphine Morphine other reaction Drug Allergy Ac tive Reason For Referral No Information Medications Medication SIG (Take, Route, Frequency, Duration) Notes Start Date End Date Status Premarin 0.625 MG 1 tab(s) orally once a day Active PEPCID 20 mg 1 tab(s) orally 2 times a day; Duration: 30 days 10/02/2023 Active CITRACAL + D 250 mg-12.5 mcg 2 tab(s) chewed once a day Active LEVOCETIRIZINE DIHYDROCHLORIDE 5 mg 1 tab(s) orally once a day (in the evening); Duration: 30 day(s) 10/02/2023 Active Pepcid 20 MG 1 tab(s) orally 2 times a day; Duration: 30 days 10/02/2023 Active Levocetirizine Dihydrochloride 5 MG 1 tab(s) orally once a day (in the evening); Duration: 30 day(s) 10/02/2023 Active PREMARIN 0.625 mg 1 tab(s) orally once a day Active CLOBETASOL TOPICAL 0.05% 1 javi applied topically 2 times a day Active TRAMADOL 25 mg 1 tab(s) orally every 6 hours Active Citracal Maximum 250 MG-12.5 MCG 2 TAB(S) CHEWED ONCE A DAY *Please review and pick correct strength-formulati on from [employer] options. If intended option is not shown, discontinue and re-order from Quick Search* Active traMADol HCl 25 MG 1 TAB(S) ORALLY EVERY 6 HOURS *Please review and pick correct strength-formulati on from [employer] options. If intended option is not shown, discontinue and re-order from Quick Search* Active Clobetasol Propionate 0.05 % 1 javi applied topically 2 times a day Active Social History Tobacco Use: Social History Observation Description Date Details (start date - stop date) Never Smoker NA - NA Tobacco Control (Standard) Question Answer Notes Tobacco use: Nonsmoker Problems Problem Type SNOMED Code ICD Code Onset Dates Problem Status W/U Status Risk Notes Problem Chronic allergic conjunctivitis (72618305) Other chronic allergic conjunctivitis (H10.45) Active confirmed Problem Allergic rhinitis caused by pollen (disorder) (53018715) Allergic rhinitis due to pollen (J30.1) Active confirmed Problem Allergic rhinitis (06988548) Other allergic rhinitis (J30.89) Active confirmed Problem Erythrocyte sedimentation rate raised (542268112) Elevated erythrocyte sedimentation rate (R70.0) Active confirmed Problem Allergic rhiniti s due to animal (cat) (dog) hair and dander (J30.81) Active confirmed Plan Of Treatment No Information Insurance Providers Payer Name Payer Address Payer Phone Subscriber Number Group Number Insured Name Patient Relationship to Insured Coverage Start Date Coverage End Date [employer] (Medicare) Attention Claims [address] [facility] [place] [address] [id number] Courtney Blake Self - patient is the insured [address] [place] [address] [address] [place] [address] [id number] BlakeCourtney Self - patient is the insured for Life [address] [place] [address] [id number] Hayden Courtney Self - patient is the insured Medical (General) History Medical History History ICD Code Arthritis Surgical History Surgery Date(Month/Year) knee replacement 2019
== END 2024-12-22 12:11 | disposition home or self-care (01) ==
LOC: CHSIMG 12:13
PROVIDERS: PCP Nurse Practitioner Family; Visit Provider Nurse Practitioner
DX: Z12.31 Encounter for screening mammogram for malignant neoplasm of breast (principal)
CPT/HCPCS: 77063; 77067